=== PATIENT | male | born 1975 | race African-American/Black ===

== ENCOUNTER 2017-05-02 18:01 | Emergency (ER) | payer SELFPAY ==
[~2017-05-02] VITALS: Ht 177.8 cm; Wt 90.7 kg
--- NOTE | 2017-05-02 18:12 | PHYS DOC ---
Adult General Chief Complaint Chief Complaint: altered mental status HPI HPI this is a pleasant 42-year-old male [place]. Local residence called EMS this man lying in the road last hour remained and moving. It is unclear if his any trauma to the patient suffered from. [facility] was dispatched to the scene found the man lying in a prone position protecting his own airway unresponsive. Accu-Chek on scene was 107. Vital signs are stable on scene. Patient was given 2 g of Narcan with some mild response to therapy. Increased respiratory rate. He was responsive to painful stimuli, moaned, but does not open his eyes. He was 98.7 temp Review of Systems Review of Systems Patient Condition No History Was Retrieved Current Medications Current Medications Current Medications Medications (Trade) Dose Ordered Sig/Cori Start Time Stop Time Status Last Admin Dose Admin Multivitamins 10 ml/Folic Acid 1 mg/Thiamine HCl 100 mg/Sodium Chloride 1,011.2 ml @ 1,000 mls/ hr Q1H 05/02/17 18:30 05/02/17 19:00 DC 05/02/17 18:45 1,000 MLS/HR Naloxone HCl (Narcan) 2 mg 1X ONCE 05/02/17 18:30 05/02/17 18:31 DC Allergies Allergies Allergies Coded Allergies Type Severity Reaction Last Updated Verified No Known Drug Allergies 05/02/17 No Physical Exam Physical Exam Is patient's vital signs are stable Constitutional: Well developed, well nourished, no acute distress, non-toxic appearance patient resting quietly with quite sonorous respirations protecting his own airway. HENT: Normocephalic, atraumatic, bilateral external ears normal, dry mucous membranes gag is blunted but intact, no oral exudates, nose normal. [] Eyes: Pupils are pinpoint and minimally reactive, conjunctiva normal, no discharge. [] Neck: No obvious deformity no jordan along the clavicle. Cardiovascular:Heart rate regular rhythm, no murmur [] Lungs & Thorax: Bilateral breath sounds clear to auscultation [] Abdomen: Bowel sounds normal, soft, no tenderness, no masses, no pulsatile masses. [] Skin: Warm, dry, no erythema, no rash. [] Back: External jordan noted Extremities: No tenderness, no cyanosis, he does dementia clubbing of the fingers bilaterally with tobacco staining on his fingertips Neurologic:. Patient is quietly resting sonorous respirations Psychologic: Unassessable. Current Patient Data Vital Signs Vital Signs Date Time Temp Pulse Resp B/P (MAP) Pulse Ox O2 Delivery O2 Flow Rate FiO2 05/02/17 18:04 97.7 81 18 125/72 (89) 97 Room Air 97.7 Lab Values Laboratory Tests Test 05/02/17 18:00 05/02/17 18:14 05/02/17 18:35 05/02/17 18:48 White Blood Count 6.3 x10^3/uL (4.0-11.0) Red Blood Count 4.31 x10^6/uL (4.30-5.70) Hemoglobin 13.5 g/dL (13.0-17.5) Hematocrit 39.2 % (39.0-53.0) Mean Corpuscular Volume 91 fL (79-100) Mean Corpuscular Hemoglobin 31 pg (25-35) Mean Corpuscular Hemoglobin Concent 34 g/dL (31-37) Red Cell Distribution Width 13.8 % (11.5-14.5) Platelet Count 259 x10^3/uL (140-400) Neutrophils (%) (Auto) 60 % (31-73) Lymphocytes (%) (Auto) 28 % (24-48) Monocytes (%) (Auto) 10 % (0-9) H Eosinophils (%) (Auto) 1 % (0-3) Basophils (%) (Auto) 1 % (0-3) Neutrophils # (Auto) 3.8 x10^3uL (1.8-7.7) Lymphocytes # (Auto) 1.8 x10^3/uL (1.0-4.8) Monocytes # (Auto) 0.6 x10^3/uL (0.0-1.1) Eosinophils # (Auto) 0.1 x10^3/uL (0.0-0.7) Basophils # (Auto) 0.0 x10^3/uL (0.0-0.2) Urine Collection Type Unknown Urine Color Yellow Urine Clarity Clear Urine pH 5.5 Urine Specific [place] >=1.030 Urine Protein Negative mg/dL (NEG-TRACE) Urine Glucose (UA) Negative mg/dL (NEG) Urine Ketones (Stick) Negative mg/dL (NEG) Urine Blood Moderate (NEG) Urine Nitrite Negative (NEG) Urine Bilirubin Small (NEG) Urine Urobilinogen Dipstick 1.0 mg/dL (0.2 mg/dL) Urine Leukocyte Esterase Negative (NEG) Urine RBC 11-20 /HPF (0-2) Urine WBC 5-10 /HPF (0-4) Urine Squamous Epithelial Cells Mod /LPF Urine Amorphous Sediment Present /HPF Urine Bacteria 0 /HPF (0-FEW) Urine Mucus Mod /LPF Urine Opiates Screen Neg (NEG) Urine Methadone Screen Neg (NEG) Urine Barbiturates Neg (NEG) Urine Phencyclidine Screen Pos (NEG) Urine Amphetamine/Methamphetamine Neg (NEG) Urine Benzodiazepines Screen Neg (NEG) Urine Cocaine Screen Neg (NEG) Urine Cannabinoids Screen Neg (NEG) Urine Ethyl Alcohol Neg (NEG) O2 Saturation 96 % (92-99) Arterial Blood pH 7.38 (7.35-7.45) Arterial Blood pCO2 at Patient Temp 44 mmHg (35-46) Arterial Blood pO2 at Patient Temp 94 mmHg (75-108) Arterial Blood HCO3 26 mmol/L (21-28) Arterial Blood Base Excess 1 mmol/L (-3-3) FiO2 21.0 Sodium Level 144 mmol/L (136-145) Potassium Level 3.6 mmol/L (3.5-5.1) Chloride Level 107 mmol/L (98-107) Carbon Dioxide Level 28 mmol/L (21-32) Anion Gap 9 (6-14) Blood Urea Nitrogen 13 mg/dL (8-26) Creatinine 1.0 mg/dL (0.7-1.3) Estimated GFR (Cockcroft-Gault) 98.7 Glucose Level 100 mg/dL (70-99) H Calcium Level 9.0 mg/dL (8.5-10.1) Magnesium Level Pending Total Bilirubin Pending Direct Bilirubin Pending Aspartate Amino Transferase (AST) Pending Alanine Aminotransferase (ALT) Pending Alkaline Phosphatase Pending Total Protein Pending Albumin Pending Salicylates Level 3.8 mg/dL (2.8-20.0) Salicylate Last Dose Date Salicylate Last Dose Time Acetaminophen Level < 2 mcg/ml (10-30) L Acetaminophen Last Dose Date Acetaminophen Last Dose Time Ethyl Alcohol Level < 10 mg/dL (0-10) Laboratory Tests 05/02/17 18:00 Laboratory Tests 05/02/17 18:48 EKG EKG [] EKG timed 6:38 PM demonstrates normal sinus rhythm heart rate of 76. 166 QRS of 74 QTC of [address] segment or T-wave changes consistent with acute coronary ischemia. There is no prolonged QT there is no Brugada is no Leighann- Parkinson-White no abnormalities noted associated with hyper or hypokalemia. CT read by Dr. Gonsalez Radiology/Procedures Radiology/Procedures [] [facility] [address] [place] [address] IMAGING REPORT Signed PATIENT: IVETTE FARRELL ACCOUNT: [id number] : 1975 LOCATION: ER AGE: 42 SEX: M EXAM STATUS: REG ER ORD. PHYSICIAN: RODNEY GONSALEZ MD REASON: ams PROCEDURE: CT HEAD WO CONTRAST CT HEAD WO CONTRAST Clinical indications: found unresponsive, altered mental status, no priors Technique: Noncontrast axial cross sectional scanning of the head was performed. Findings: No acute intracranial hemorrhage or midline shift or mass-effect or hydrocephalus or extra-axial fluid collection is seen. No focal hypodense area or sulci effacement is seen to indicate an acute infarct or edema radiographically. No skull fracture or pneumocephalus is seen. No opacification of the mastoid sinuses or the paranasal sinuses is seen. The maxillary sinuses are not completely seen in this study. Impression: No acute intracranial abnormality is seen. PQRS compliance Statement One or more of the following individualized dose reduction techniques were utilized for this study: 1. Automated exposure control 2. Adjustment of the mA and/or kV according to patient size 3. Use of iterative reconstruction technique Electronically signed by: Delon Gramajo MD (05/02/2017 6:44 PM) [facility] DICTATED and SIGNED BY: DELON GRAMAJO MD DATE: 05/02/171837 CC: RODNEY GONSALEZ MD; UNKNOWN PCP NAME ~ Course & Med Decision Making Course & Med Decision Making Pertinent Labs and Imaging studies reviewed. (See chart for details) Time is now 6:16 PM patient is wide awake and oriented. He is somewhat upset that he believes he was sleeping when EMS found him and brought him into the ER. He is compliant and willing to let us complete our evaluation and go home and sleep. He is complaining of no pain no headache chest pain and belly pain he just wants to sleep. He gave us a long story about how he is working 2 jobs hours has not had a chance to sleep. He has been using fluids to keep himself awake. [] Impression of the ABG on 2 L nasal cannula was pH 7.388 PCO2 44 PO2 94 base excess 0.8 bicarbonate 26 systolic normal looking ABG. Is compliant completed chest x-ray and head CT. Laboratory is pending. Patient: hAs PCP in his urine. No other drugs. he admits nursing staff at 6:50 PM that he actually did PCP Attempt to Keep himself awake to do his 2 jobs. CBC is normal. Urinalysis otherwise unremarkable. CBC is unremarkable, CMP is unremarkable, mid-level's below detectable, salicylate level below tactile, alcohol levels negative patient is now awake alert and oriented 3 very lucid hungry and would like to go home. Time is a 7: 15 PM Offered a meal and then discharged home. Impression: Phencyclidine abuse altered mental status resolved Physician PCP follow-up as to return for a routine care. Patient will be encouraged not to use drugs Dragon Disclaimer Dragon Disclaimer This electronic medical record was generated, in whole or in part, using a voice recognition dictation system. Departure Departure Impression: Primary Impression: Phencyclidine (PCP) intoxication Disposition: HOME, SELF-CARE Condition: IMPROVED Patient Instructions: Alcohol and Drug Addiction, Finding Treatment, Drug Abuse and Addiction-Sports[facility] Additional Instructions: Please return for any new or increasing symptoms, please refrain and stop using recreational drugs as a potentially life-threatening. Please return for any questions or concerns might have RODNEY GONSALEZ MD May 02, 2017 18:12
[2017-05-02 18:25] LABS: BASO % 1 % (0-3); EOS % 1 % (0-3); HEMATOCRIT 39.2 % (39.0-53.0); HEMOGLOBIN 13.5 g/dL (13.0-17.5); LYMPH # 1.8 x10^3/uL (1.0-4.8); LYMPH % 28 % (24-48); MEAN CORPUSCULAR HEMOGLOBIN 31 pg (25-35); MEAN CORPUSCULAR HGB CONC 34 g/dL (31-37); MEAN CORPUSCULAR VOLUME 91 fL (79-100); MONO % 10 % (0-9); NEUT % 60 % (31-73); PLATELET COUNT 259 x10^3/uL (140-400); RED BLOOD COUNT 4.31 x10^6/uL (4.30-5.70); RED CELL DISTRIBUTION WIDTH 13.8 % (11.5-14.5); WHITE BLOOD COUNT 6.3 x10^3/uL (4.0-11.0)
[2017-05-02 18:26] LABS: BILIRUBIN,URINE SMALL (NEG); GLUCOSE,URINE NEGATIVE (NEG); NITRITE,URINE NEGATIVE (NEG); PH,URINE 5.5; PROTEIN,URINE NEGATIVE (NEG-TRACE)
[2017-05-02] MEDS ORDERED: MULTIVIT INFUSN,ADULT 4,VIT K 10 ML, FOLIC ACID 1 MG, THIAMINE 100 MG in IV NORMAL SALI... IV SCH (18:30)
[2017-05-02] MEDS ORDERED: NALOXONE 2 MG/2 ML DISP.SYRIN. IV ONE (18:30)
[2017-05-02 18:31] LABS: BARBITURATES NEG (NEG); BENZODIAZEPINES NEG (NEG); CANNABINOIDS NEG (NEG); COCAINE NEG (NEG); METHADONE NEG (NEG); OPIATES NEG (NEG); PHENCYCLIDINE POS (NEG)
[2017-05-02 18:37] LABS: BACTERIA,URINE 0 /HPF (0-FEW); SQUAMOUS EPITHELIAL CELL,UR MOD /LPF
[2017-05-02 18:43] LABS: HCO3 ABG 26 mmol/L (21-28); PO2 ABG 94 mmHg (75-108); SAT O2 ABG 96 % (92-99)
[2017-05-02 18:44] LABS: PCO2 ABG 44 mmHg (35-46); PH ABG 7.38 (7.35-7.45)
--- NOTE | 2017-05-02 18:48 | RAD ---
CT HEAD WO CONTRAST Clinical indications: found unresponsive, altered mental status, no priors Technique: Noncontrast axial cross sectional scanning of the head was performed. Findings: No acute intracranial hemorrhage or midline shift or mass-effect or hydrocephalus or extra-axial fluid collection is seen. No focal hypodense area or sulci effacement is seen to indicate an acute infarct or edema radiographically. No skull fracture or pneumocephalus is seen. No opacification of the mastoid sinuses or the paranasal sinuses is seen. The maxillary sinuses are not completely seen in this study. Impression: No acute intracranial abnormality is seen. PQRS compliance Statement One or more of the following individualized dose reduction techniques were utilized for this study: 1. Automated exposure control 2. Adjustment of the mA and/or kV according to patient size 3. Use of iterative reconstruction technique Electronically signed by: Shade Gramajo MD (05/02/2017 6:44 PM) [facility]
[2017-05-02 19:09] LABS: GFR 98.7; POTASSIUM 3.6 mmol/L (3.5-5.1)
[2017-05-02 19:12] LABS: ETHANOL < 10 mg/dL (0-10)
[2017-05-02 19:15] LABS: ALBUMIN 3.7 g/dL (3.4-5.0); DIRECT BILIRUBIN 0.1 mg/dL (0.0-0.2); MAGNESIUM 2.6 mg/dL (1.8-2.4); TOTAL BILIRUBIN 0.4 mg/dL (0.2-1.0); TOTAL PROTEIN 6.9 g/dL (6.4-8.2)
[2017-05-02 20:00] VITALS: BP 116/76
--- NOTE | 2017-05-03 06:59 | EKG ---
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
--- NOTE | 2017-05-03 08:27 | RAD ---
Indication change in mental status. Protocol study. A single view of the chest was obtained. No prior imaging of the chest is available. The heart and prior vessels appear normal. The lungs are clear of acute infiltrates. Significant pleural fluid is not present. There is no pneumothorax. There is a oval curvilinear density behind the left heart.. This may represent a hiatus hernia. The etiology is unclear. Additional imaging should be considered. IMPRESSION: No acute finding in the chest. Retrocardiac density. See above discussion
== END 2017-05-02 20:25 | disposition home or self-care (01) ==
LOC: ER 18:01
DX: F16.129 Hallucinogen abuse with intoxication, unspecified (principal)
CPT/HCPCS: 36415; 36600; 70450; 71010; 80048; 80076; 80305; 80329; 81001; 82805; 83735; 83880; 84443; 84484; 85027; 87086; 93005; 96365; 99285; G0480; J7030; G0481